=== PATIENT | male | born 1995 | race Two or more races ===

== ENCOUNTER 2018-02-01 16:50 | Emergency (ER) | payer BC ==
[~2018-02-01] VITALS: Ht 185.4 cm; Wt 90.7 kg
[2018-02-01] MEDS ORDERED: IPRATROPIUM BROM 0.5 MG/2.5ML INH SOL NEB ONE (20:30)
[2018-02-01] MEDS ORDERED: ALBUTEROL SULF 2.5 MG/0.5ML(0.5%) NEB SOLN NEB ONE (20:30)
[2018-02-01 20:45] VITALS: BP 132/70
[2018-02-01] MEDS ORDERED: CLINDAMYCIN 600 MG/4 ML VL IM ONE (20:45)
[2018-02-01] MEDS ORDERED: IBUPROFEN 800 MG TAB PO ONE (20:45)
[2018-02-01] MEDS ORDERED: cefTRIAXone SOD 1,000 MG VL IM ONE (20:45)
== END 2018-02-01 21:32 | disposition home or self-care (01) ==
LOC: ER 16:50
DX: J18.9 Pneumonia, unspecified organism (principal)
CPT/HCPCS: 71045; 94640; 96372; 99283; J7611; J7644